=== PATIENT | female | born 1975 | race Caucasian/White ===

== ENCOUNTER 2016-12-14 13:45 | Emergency (ER) | payer OTHER ==
[2016-12-14 14:06] VITALS: RESP 16; TEMP 98.6; O2SAT 98; BMI 21.4
[2016-12-14] MEDS ORDERED: Sodium Chloride 0.9% 1,000 ML IV STA (14:14)
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
[2016-12-14 14:54] LABS: ADD MANUAL DIFF? NO
[2016-12-14 15:06] LABS: ALB/GLOB RATIO 1.1 (1.1-1.8); ALKALINE PHOSPHATASE 72 U/L (38-133); ALT/SGPT 32 U/L (7-56); AST/SGOT 22 U/L (15-39); BILIRUBIN,TOTAL 0.3 mg/dL (0.2-1.3); BLOOD UREA NITROGEN 13 mg/dL (7-21); CALCIUM 9.2 mg/dL (8.4-10.5); CARBON DIOXIDE 28 mmol/L (21-33); CHLORIDE 101 mmol/L (98-107); GFR AFRICAN-AMERICAN > 60; GLUCOSE,RANDOM 81 mg/dL (70-110); LIPASE 71 U/L (23-300); SODIUM 137 mmol/L (132-148); TOTAL PROTEIN 7.6 g/dL (5.8-8.3)
[2016-12-14 15:14] LABS: BASO # 0.02 K/mm3 (0.0-2.0); BASO % 0.4 % (0.0-3.0); EOS # 0.3 (0.0-0.7); EOS % 5.1 % (1.5-5.0); GRAN # 3.03 (1.4-6.5); GRAN % 56.9 % (50.0-68.0); HEMATOCRIT 35.8 % (36.0-48.0); LYMPH # 1.5 (1.2-3.4); LYMPH % 28.6 % (22.0-35.0); MEAN CORPUSCULAR HEMOGLOBIN 31.8 pg (25.0-35.0); MEAN CORPUSCULAR HGB CONC 33.8 g/dl (31.0-37.0); MONO # 0.5 (0.1-0.6); PLATELET COUNT 194 10^3/uL (120.0-450.0); RED CELL DISTRIBUTION WIDTH 12.1 % (11.5-14.5); WHITE BLOOD COUNT 5.3 10^3/ul (4.5-11.0)
[2016-12-14 16:04] VITALS: BP 94/55; PULSE 55
== END 2016-12-14 16:04 | disposition home or self-care (01) ==
LOC: ED 13:45
DX: K29.70 Gastritis, unspecified, without bleeding (principal); Z87.442 Personal history of urinary calculi; Z97.5 Presence of (intrauterine) contraceptive device
CPT/HCPCS: 80053; 83690; 85025; 96374; 96375; 99283; J2405; J7040

== ENCOUNTER 2017-02-21 08:38 | Emergency (ER) | payer OTHER ==
[2017-02-21 08:39] VITALS: BMI 21.4
[2017-02-21 09:04] VITALS: BP 112/78; PULSE 87; RESP 18; TEMP 98.3; O2SAT 100
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
[2017-02-21] MEDS ORDERED: guaiFENesin-Codeine 100-10mg/5ml Syrup (5 ml) UD PO STA (09:12)
== END 2017-02-21 09:37 | disposition home or self-care (01) ==
LOC: ED 08:38
DX: J30.2 Other seasonal allergic rhinitis (principal); J40 Bronchitis, not specified as acute or chronic

== ENCOUNTER 2017-05-30 10:22 | Emergency (ER) | payer OTHER ==
[2017-05-30 10:31] VITALS: BMI 20.5
[2017-05-30 10:45] VITALS: RESP 18; O2SAT 100
--- NOTE | 2017-05-30 11:14 | ED PDOC ---
Arrival/HPI - General Chief Complaint: Breast Problem Time Seen by Provider: 05/30/17 10:45 Historian: Patient - History of Present Illness Narrative History of Present Illness (Text): 05/30/17 11:43 41-year-old female presents today with bilateral breast pain that radiates to the arms bilaterally and the shoulders. Patient states she has pain with range of motion of the arms. pt states the pain is in the joints. pt states she has pain in the shoulders, elbows and wrists bilaterally and pain in the axilla bilaterally. Patient states she has pain radiating to the shoulder and neck/ upper back. pt states she is unable to lift both arms because of the pain. She denies chest pain or shortness of breath. pt states the pain is NOT in her chest , it is in her Breasts. Patient states she took Tylenol for pain at home yesterday without improvement in her symptoms. Patient states prior to having an IUD she had this similar pain around her menstrual cycle. Patient states she has not had this pain in over a year. Patient states the pain is much worse than she has ever had before. No abdominal pain. No nausea or vomiting. No fevers or chills. pt states all of her joints ache. Patient denies numbness weakness tingling in the extremities. patient denies . Time/Duration: Other (last night) Symptom Onset: Gradual Quality: Aching Severity Level: 6 Past Medical History - Provider Review Nursing Documentation Reviewed: Yes - Travel History Have you recently traveled outside [place] w/in the past 3 mons?: No - Past History Past History: No Previous - Infectious Disease Hx of Infectious Diseases: None - Tetanus Immunization Tetanus Immunization: Unknown - Past Medical History Past Medical History: No Previous - Cardiac Hx Cardiac Disorders: No - Pulmonary Hx Respiratory Disorders: No - Neurological Hx Neurological Disorder: No - HEENT Hx HEENT Disorder: Yes (GLASSES) - Renal Hx Renal Disorder: No Hx Kidney Stones: Yes (PASSED) - Endocrine/Metabolic Hx Endocrine Disorders: No - Hematological/Oncological Hx Blood Disorders: No - Integumentary Hx Dermatological Disorder: No - Musculoskeletal/Rheumatological Hx Musculoskeletal Disorders: Yes (KNEE PAIN LEFT/RT ARM) - Gastrointestinal Hx Gastrointestinal Disorders: No - Genitourinary/Gynecological Hx Genitourinary Disorders: No - Psychiatric Hx Psychophysiologic Disorder: No Hx Substance Use: No - Past Surgical History Past Surgical History: No Previous - Surgical History Hx Orthopedic Surgery: Yes (RT. FOOT ) - Anesthesia Hx Anesthesia: Yes Hx Anesthesia Reactions: No Hx Malignant Hyperthermia: No - Suicidal Assessment Feels Threatened In Home Enviroment: No Family/Social History - Physician Review Nursing Documentation Reviewed: Yes Family/Social History: Unknown Family HX Smoking Status: Never Smoked Hx Alcohol Use: No Hx Substance Use: No Hx Substance Use Treatment: No Allergies/Home Meds Allergies/Adverse Reactions: Allergies No Known Allergies Allergy (Verified 05/30/17 11:19) Review of Systems - Review of Systems Constitutional: absent: Fatigue, Fevers Respiratory: absent: SOB, Cough Cardiovascular: absent: Chest Pain, Palpitations Gastrointestinal: absent: Abdominal Pain, Nausea, Vomiting Genitourinary Female: Other (breast pain). absent: Dysuria, Frequency, Hematuria Musculoskeletal: Arthralgias, Back Pain, Neck Pain Skin: absent: Rash, Pruritis Neurological: absent: Headache, Dizziness Psychiatric: absent: Anxiety, Depression Physical Exam Vital Signs Reviewed: Yes Vital Signs Temp Pulse Resp BP Pulse Ox 05/30/17 12:36 98.2 F 64 18 106/57 L 100 05/30/17 10:44 98.5 F 69 18 104/71 100 Temperature: Afebrile Blood Pressure: Normal Pulse: Regular Respiratory Rate: Normal Appearance: Positive for: Well-Appearing, Non-Toxic, Comfortable Pain Distress: None Mental Status: Positive for: Alert and Oriented X 3 - Systems Exam Head: Present: Atraumatic Mouth: Present: Moist Mucous Membranes Neck: Present: Normal Range of Motion, Paraspinal Tenderness, Trachea Midline. No: Meningeal Signs, MIDLINE TENDERNESS Respiratory/Chest: Present: Clear to Auscultation, Good Air Exchange. No: Respiratory Distress, Accessory Muscle Use, Wheezes, Retracting, Rhonchi, Tachypneic, Tender to Palpation Cardiovascular: Present: Regular Rate and Rhythm, Normal S1, S2. No: Murmurs Abdomen: No: Tenderness, Distention, Rebound, Guarding Back: Present: Normal Inspection. No: Midline Tenderness, Paraspinal Tenderness Upper Extremity: Present: Normal Inspection, Normal ROM, NORMAL PULSES, Neurovascularly Intact, Capillary Refill < 2s. No: Tenderness, Swelling, Erythema Lower Extremity: Present: Normal Inspection. No: CALF TENDERNESS, Tenderness Neurological: Present: GCS=15, Speech Normal, Motor Func Grossly Intact, Normal Sensory Function, Gait Normal Skin: Present: Warm, Dry, Normal Color. No: Rashes Psychiatric: Present: Alert, Oriented x 3 Medical Decision Making ED Course and Treatment: 05/30/17 14:08 41yr old female with b/l breast pain since last night. with neck, upper back pain, b/l elbow, shoulder, wrist pain. denies cp or sob. no trauma or injury. cbc; wnl cmp; wnl lyme pending ekg; NSR at 72 b/m no st elevations, normal axis,normal intervals. cxr; wnl toradol given for pain. pt reassessment; pt feeling better after medications; states pain has improved and she can now raise her arms up above her head. advised f/u with PMD and [facility]/ advised f/u with breast specialist; advised patient she will need mammogram. pt states she is due for mammogram, states her last mammogram was last year. stressed importance of immediate return if symptoms worsen,persist or if new symptoms develop. Patient verbalizes understanding of discharge instructions and need for immediate followup. pt seen and evaluated by dr. munoz. all aspects of this case were discussed the attending of record. impression: breast pain, arthralgias motrin every 6 hours as needed for pain follow up with the primary care physician within the next 2 days Follow up with the [facility] within the next 2 days follow up with the breast specialist within the next 2 days; you should have a mammogram MIGUELINA. return if symptoms worsen, persist or if new symptoms develop. - Lab Interpretations Lab Results: 05/30/17 12:35 05/30/17 12:35 Lab Results 05/30/17 12:35: WBC 5.3, RBC 3.93, Hgb 12.7, Hct 37.2, MCV 94.7, MCH 32.3, MCHC 34.1, RDW 12.2, Plt Count 177, MPV 9.8, Gran % 64.2, Lymph % (Auto) 25.5, [place] % (Auto) 7.5 H, Eos % (Auto) 2.6, Baso % (Auto) 0.2, Gran # 3.40, Lymph # 1.4, [place] # 0.4, Eos # 0.1, Baso # 0.01 05/30/17 12:35: Sodium 136, Potassium 3.9, Chloride 105, Carbon Dioxide 25, Anion Gap 10, BUN 11, Creatinine 0.5 L, Est GFR ( Amer) > 60, Est GFR ( Non-Af Amer) > 60, Random Glucose 103, Calcium 9.6, Total Bilirubin 0.5, AST 22 , ALT 40, Alkaline Phosphatase 71, Total Protein 7.4, Albumin 3.9, Globulin 3.5 , Albumin/Globulin Ratio 1.1 - RAD Interpretation Radiology Orders: 05/30/17 11:07 CHEST TWO VIEWS (PA/LAT) [RAD] Stat - Medication Orders Current Medication Orders: Discontinued Medications Ketorolac Tromethamine (Toradol) 60 mg IM STAT STA Stop: 05/30/17 11:08 Last Admin: 05/30/17 11:56 Dose: 60 mg MAR Pain Assessment Document 05/30/17 11:56 JOL (Rec: 05/30/17 11:57 [id number] Pain Reassessment Is this a pain reassessment? No Sleep Is patient sleeping during reassessment? No Presence of Pain Presence of Pain Yes Pain Scale Used Pain Scale Used Numeric Location Left, Right or Bilateral Bilateral Pain Location Body Site Breast Description Intensity of Pain at present 7 IM Administration Charges Document 05/30/17 11:56 JOL (Rec: 05/30/17 11:57 [id number]) Injection Site MAR Injection Site Left Deltoid Charges for Administration # of IM Administrations 1 Disposition/Present on Arrival - Present on Arrival Any Indicators Present on Arrival: No History of DVT/PE: No History of Uncontrolled Diabetes: No Urinary Catheter: No History of Decub. Ulcer: No History Surgical Site Infection Following: None - Disposition Have Diagnosis and Disposition been Completed?: Yes Diagnosis: Breast pain, Arthralgia Disposition: HOME/ ROUTINE Disposition Time: 14:26 Patient Plan: Discharge Patient Problems: Current Active Problems Problem Status Onset Breast pain Acute Arthralgia Acute Condition: GOOD Discharge Instructions (ExitCare): Arthralgia (ED) Additional Instructions: motrin every 6 hours as needed for pain follow up with the primary care physician within the next 2 days Follow up with the [facility] within the next 2 days follow up with the breast specialist within the next 2 days; you should have a mammogram MIGUELINA. return if symptoms worsen, persist or if new symptoms develop. Prescriptions: Ibuprofen [Motrin Tab] 400 mg PO Q6H PRN #20 tab PRN Reason: Pain, Mild (1-3) Referrals: Megan Kwan MD [Primary Care Provider] - Follow up with primary German Dominguez MD [Staff Provider] - Follow up with primary Huyen Cordon MD [Medical Doctor] - Follow up with primary Jovanny Moreno DO [Staff Provider] - Follow up with primary Forms: [employer] (Lux[place]ish), WORK NOTE
[2017-05-30 12:37] VITALS: TEMP 98.2
[2017-05-30 12:51] LABS: BASO # 0.01 K/mm3 (0.0-2.0); BASO % 0.2 % (0.0-3.0); EOS # 0.1 (0.0-0.7); EOS % 2.6 % (1.5-5.0); GRAN # 3.4 (1.4-6.5); GRAN % 64.2 % (50.0-68.0); HEMATOCRIT 37.2 % (36.0-48.0); LYMPH # 1.4 (1.2-3.4); LYMPH % 25.5 % (22.0-35.0); MEAN CELL VOLUME 94.7 fl (80.0-105.0); MEAN CORPUSCULAR HEMOGLOBIN 32.3 pg (25.0-35.0); MEAN CORPUSCULAR HGB CONC 34.1 g/dl (31.0-37.0); MEAN PLATELET VOLUME 9.8 fl (7.0-11.0); MONO # 0.4 (0.1-0.6); MONO % 7.5 % (1.0-6.0); RED CELL DISTRIBUTION WIDTH 12.2 % (11.5-14.5); WHITE BLOOD COUNT 5.3 10^3/ul (4.5-11.0)
[2017-05-30 12:53] LABS: ALB/GLOB RATIO 1.1 (1.1-1.8); ALKALINE PHOSPHATASE 71 U/L (38-126); ALT/SGPT 40 U/L (7-56); AST/SGOT 22 U/L (14-36); BILIRUBIN,TOTAL 0.5 mg/dL (0.2-1.3); BLOOD UREA NITROGEN 11 mg/dL (7-21); CALCIUM 9.6 mg/dL (8.4-10.5); CARBON DIOXIDE 25 mmol/L (21-33); CHLORIDE 105 mmol/L (98-107); GFR AFRICAN-AMERICAN > 60; GLUCOSE,RANDOM 103 mg/dL (70-110); POTASSIUM 3.9 mmol/L (3.6-5.0); SODIUM 136 mmol/L (132-148); TOTAL PROTEIN 7.4 g/dL (5.8-8.3)
--- NOTE | 2017-05-30 13:06 | RAD ---
HISTORY: b/l breast pain COMPARISON: 08/02/2016 TECHNIQUE: Chest PA and lateral FINDINGS: LUNGS: No active pulmonary disease. PLEURA: No significant pleural effusion identified. No pneumothorax apparent. CARDIOVASCULAR: Normal. OSSEOUS STRUCTURES: No significant abnormalities. VISUALIZED UPPER ABDOMEN: Normal. OTHER FINDINGS: None. IMPRESSION: No active disease.
[2017-05-30 14:38] VITALS: BP 100/64; PULSE 65
--- NOTE | 2017-05-30 23:39 | CARD ---
APPROVED REPORT EKG Measurement Heart [id number] <Conclusion> Normal sinus rhythm Normal ECG
[2017-05-31 07:55] LABS: LYME DISEASE SCREEN <0.90 index
== END 2017-05-30 14:45 | disposition home or self-care (01) ==
LOC: ED 10:22
DX: N64.4 Mastodynia (principal); M25.50 Pain in unspecified joint
CPT/HCPCS: 71020; 80053; 85025; 86618; 93005; 96372; 99284; J1885

== ENCOUNTER 2017-12-27 15:53 | Emergency (ER) | payer OTHER ==
[2017-12-27] MEDS ORDERED: cefTRIAXone (Rocephin) 1 gm Inj IM STA (16:18)
[2017-12-27] MEDS ORDERED: TDAP Vaccine 0.5 mL Syr IM ONE (16:18)
--- NOTE | 2017-12-27 16:23 | ED PDOC ---
Arrival/HPI - General Time Seen by Provider: 12/27/17 16:17 Historian: Patient - History of Present Illness Narrative History of Present Illness (Text): 12/27/17 16:19 42yo female with no pmhx who present with finger laceration to left 3rd finger x 2days. Notes that she accidentally cut her finger with a knife while cooking. States she started applying topical abx to the wound yesterday. Came to ED today for the persistent pain, swelling and redness. States the redness spread more today. She states that she is not up to date with her TD booster. Denies fever, chills, purulent discharge from wound, paresthesia, any other complaint. Past Medical History - Provider Review Nursing Documentation Reviewed: Yes - Past History Past History: No Previous - Infectious Disease Hx of Infectious Diseases: None - Tetanus Immunization Tetanus Immunization: Unknown - Past Medical History Past Medical History: No Previous - Cardiac Hx Cardiac Disorders: No - Pulmonary Hx Respiratory Disorders: No - Neurological Hx Neurological Disorder: No - HEENT Hx HEENT Disorder: Yes (GLASSES) - Renal Hx Renal Disorder: No Hx Kidney Stones: Yes (PASSED) - Endocrine/Metabolic Hx Endocrine Disorders: No - Hematological/Oncological Hx Blood Disorders: No - Integumentary Hx Dermatological Disorder: No - Musculoskeletal/Rheumatological Hx Musculoskeletal Disorders: Yes (KNEE PAIN LEFT/RT ARM) - Gastrointestinal Hx Gastrointestinal Disorders: No - Genitourinary/Gynecological Hx Genitourinary Disorders: No - Psychiatric Hx Psychophysiologic Disorder: No Hx Substance Use: No - Past Surgical History Past Surgical History: No Previous - Surgical History Hx Orthopedic Surgery: Yes (RT. FOOT ) - Anesthesia Hx Anesthesia: Yes Hx Anesthesia Reactions: No Hx Malignant Hyperthermia: No - Suicidal Assessment Feels Threatened In Home Enviroment: No Family/Social History - Physician Review Nursing Documentation Reviewed: Yes Family/Social History: Unknown Family HX Smoking Status: Never Smoked Hx Alcohol Use: No Hx Substance Use: No Hx Substance Use Treatment: No Allergies/Home Meds Allergies/Adverse Reactions: Allergies No Known Allergies Allergy (Verified 12/27/17 16:24) Review of Systems - Physician Review All systems were reviewed & negative as marked: Yes - Review of Systems Constitutional: Normal Eyes: Normal ENT: Normal Respiratory: Normal Cardiovascular: Normal Gastrointestinal: Normal Genitourinary Female: Normal Musculoskeletal: Normal Skin: Laceration (Left 3rd finger) Neurological: Normal Endocrine: Normal Hemo/Lymphatic: Normal Psychiatric: Normal Physical Exam Vital Signs Reviewed: Yes Vital Signs Temp Pulse Resp BP Pulse Ox 12/27/17 17:20 98.4 F 80 17 124/77 100 12/27/17 16:24 98.4 F 80 17 124/77 100 Temperature: Afebrile Blood Pressure: Normal Pulse: Regular Respiratory Rate: Normal Appearance: Positive for: Well-Appearing, Non-Toxic, Comfortable Pain Distress: None Mental Status: Positive for: Alert and Oriented X 3 - Systems Exam Head: Present: Atraumatic, Normocephalic Pupils: Present: PERRL Extroacular Muscles: Present: EOMI Conjunctiva: Present: Normal Mouth: Present: Moist Mucous Membranes Neck: Present: Normal Range of Motion Respiratory/Chest: Present: Clear to Auscultation, Good Air Exchange. No: Respiratory Distress, Accessory Muscle Use Cardiovascular: Present: Regular Rate and Rhythm, Normal S1, S2. No: Murmurs Abdomen: No: Tenderness, Distention, Peritoneal Signs Back: Present: Normal Inspection Upper Extremity: Present: Normal Inspection. No: Cyanosis, Edema Lower Extremity: Present: Normal Inspection. No: Edema Neurological: Present: GCS=15, CN II-XII Intact, Speech Normal Skin: Present: Warm, Dry, Normal Color, Laceration (1.0cm Curvilinear laceration noted to left 3rd volar mid finger. No crepitus. No sign of tendon involement. FROM. +Diffuse finger swelling and overlaying erythema of volar 3rd finger.). No: Rashes Psychiatric: Present: Alert, Oriented x 3, Normal Insight, Normal Concentration Medical Decision Making ED Course and Treatment: 12/28/17 00:42 PT presented for stated history. She was hemodynamically stable and in no distress. She have no pmhx. the laceration from two days could not be close and healing will be by secondary healing. wound was irrigated with NS, bacitracine applied and dressed. Finger appears cellulitic and pt was given a dose of Rocephin in ED and DC home with keflex. she was strongly advised to observe wound for [id number] redness and return to ED immediately of IV abx. She was referred to her PMD. - Medication Orders Current Medication Orders: Discontinued Medications Ceftriaxone Sodium (Rocephin) 1 gm IM STAT STA PRN Reason: Protocol Stop: 12/27/17 16:19 Last Admin: 12/27/17 17:10 Dose: 1 gm IM Administration Charges Document 12/27/17 17:10 OCS (Rec: 12/27/17 17:11 OCS [id number]) Injection Site MAR Injection Site Right Gluteus Gerardo Charges for Administration # of IM Administrations 1 Ibuprofen (Motrin Tab) 800 mg PO STAT STA Stop: 12/27/17 16:19 Last Admin: 12/27/17 17:10 Dose: 800 mg Tetanus/Reduced Diphtheria/Acell Pertussis (Boostrix Vaccine Inj) 0.5 ml IM .ONCE ONE Stop: 12/27/17 16:19 Last Admin: 12/27/17 17:11 Dose: 0.5 ml Immunization Registry Document 12/27/17 17:11 OCS (Rec: 12/27/17 17:12 OCS [id number]) Immunization Registry Consent Date 05/30/17 Disposition/Present on Arrival - Present on Arrival Any Indicators Present on Arrival: No History of DVT/PE: No History of Uncontrolled Diabetes: No Urinary Catheter: No History Surgical Site Infection Following: None - Disposition Have Diagnosis and Disposition been Completed?: Yes Diagnosis: Finger laceration, Cellulitis Disposition: HOME/ ROUTINE Disposition Time: 16:25 Patient Plan: Discharge Condition: STABLE Discharge Instructions (ExitCare): Cellulitis (Skin Infection), Adult (DC), Cellulitis (ED) Additional Instructions: Keep wound clean and dry Follow up with your Doctor Return to ED for worsening redness, purulent discharge, fever, any other complaint. Prescriptions: Cephalexin [Keflex] 500 mg PO QID #28 capsule Ibuprofen [Motrin Tab] 600 mg PO Q6 #15 tab Referrals: Queta Lowry MD [Staff Provider] - Follow up with primary Forms: [employer] (Vincentian)
[2017-12-27 16:30] VITALS: BP 124/77; PULSE 80; RESP 17; TEMP 98.4; O2SAT 100; BMI 21.6
== END 2017-12-27 17:20 | disposition home or self-care (01) ==
LOC: ED 15:53
DX: S61.213A Laceration without foreign body of left middle finger without damage to nail, initial encounter (principal); W26.0XXA Contact with knife, initial encounter; Y93.G3 Activity, cooking and baking; Y92.89 Other specified places as the place of occurrence of the external cause; L03.012 Cellulitis of left finger
CPT/HCPCS: 90471; 90715; 96372; 99283; J0696

== ENCOUNTER 2017-12-29 15:40 | Emergency (ER) | payer OTHER ==
[2017-12-29 15:40] VITALS: BMI 21.6
[2017-12-29 16:31] VITALS: O2SAT 98
--- NOTE | 2017-12-29 17:07 | ED PDOC ---
Arrival/HPI - General Chief Complaint: Fever Time Seen by Provider: 12/29/17 16:22 EM Caveat: Acuity of Condition - History of Present Illness Narrative History of Present Illness (Text): 12/29/17 17:03 Pt is a 42 yr old female who presents for subjective fever, joint aches and fatigue s/p finger laceration 4 days ago and tetanus and Rocephin IV. Pt has been on Keflex 500 mg BID since d/c but began to feel warm with bodyaches since starting it. Denies chest pain, sob, n/v/d, chills, numbness or increase in pain at the laceration site. PMD: Dr Kwan Time/Duration: Prior to Arrival, 24 hours Symptom Onset: Gradual Symptom Course: Worsening Quality: Aching Severity Level: 3, 4, 5 Activities at Onset: Rest, Light Context: Home Past Medical History - Provider Review Nursing Documentation Reviewed: Yes - Travel History Have you recently traveled outside [place] w/in the past 3 mons?: No - Past History Past History: No Previous - Infectious Disease Hx of Infectious Diseases: None - Tetanus Immunization Tetanus Immunization: Unknown - Past Medical History Past Medical History: No Previous - Cardiac Hx Cardiac Disorders: No - Pulmonary Hx Respiratory Disorders: No - Neurological Hx Neurological Disorder: No - HEENT Hx HEENT Disorder: Yes (GLASSES) - Renal Hx Renal Disorder: No Hx Kidney Stones: Yes (PASSED) - Endocrine/Metabolic Hx Endocrine Disorders: No - Hematological/Oncological Hx Blood Disorders: No - Integumentary Hx Dermatological Disorder: No - Musculoskeletal/Rheumatological Hx Musculoskeletal Disorders: Yes (KNEE PAIN LEFT/RT ARM) - Gastrointestinal Hx Gastrointestinal Disorders: No - Genitourinary/Gynecological Hx Genitourinary Disorders: No - Psychiatric Hx Psychophysiologic Disorder: No Hx Substance Use: No - Past Surgical History Past Surgical History: No Previous - Surgical History Hx Orthopedic Surgery: Yes (RT. FOOT ) - Anesthesia Hx Anesthesia: Yes Hx Anesthesia Reactions: No Hx Malignant Hyperthermia: No - Suicidal Assessment Feels Threatened In Home Enviroment: No Family/Social History - Physician Review Nursing Documentation Reviewed: Yes Family/Social History: Unknown Family HX Smoking Status: Never Smoked Hx Alcohol Use: No Hx Substance Use: No Hx Substance Use Treatment: No Allergies/Home Meds Allergies/Adverse Reactions: Allergies No Known Allergies Allergy (Verified 12/29/17 16:28) Review of Systems - Review of Systems Constitutional: Normal, Fevers Eyes: Normal ENT: Normal. absent: Hearing Changes Respiratory: Normal. absent: SOB Cardiovascular: Normal. absent: Chest Pain, Palpitations Gastrointestinal: Normal, Nausea. absent: Abdominal Pain, Vomiting Genitourinary Female: Normal. absent: Dysuria Musculoskeletal: Normal, Arthralgias (throughout), Back Pain, Neck Pain. absent : Joint Swelling Skin: Normal, Laceration (left index finger). absent: Rash, Pruritis, Abscess, Cellulitis Neurological: Normal, Headache. absent: Dizziness Endocrine: Normal. absent: Diaphoresis Hemo/Lymphatic: Normal Psychiatric: Normal Physical Exam Vital Signs Reviewed: Yes Vital Signs Temp Pulse Resp BP Pulse Ox 12/29/17 18:22 98.6 F 88 18 102/60 98 12/29/17 16:29 98.9 F 92 H 20 102/58 L 98 12/29/17 16:26 98.7 F 100 H 18 102/58 L 97 Temperature: Afebrile Blood Pressure: Normal Pulse: Tachycardic Appearance: Positive for: Well-Appearing, Non-Toxic, Comfortable Pain Distress: Mild Mental Status: Positive for: Alert and Oriented X 3 - Systems Exam Head: Present: Atraumatic, Normocephalic Pupils: Present: PERRL Extroacular Muscles: Present: EOMI Conjunctiva: Present: Normal Mouth: Present: Moist Mucous Membranes Neck: Present: Normal Range of Motion Respiratory/Chest: Present: Clear to Auscultation, Good Air Exchange. No: Respiratory Distress, Accessory Muscle Use Cardiovascular: Present: Regular Rate and Rhythm, Normal S1, S2. No: Murmurs Abdomen: No: Tenderness, Distention, Peritoneal Signs Back: Present: Normal Inspection. No: CVA Tenderness, Midline Tenderness, Paraspinal Tenderness Upper Extremity: Present: Normal Inspection, Normal ROM, NORMAL PULSES, Tenderness (left index finger and left deltoid at injection site ), Neurovascularly Intact, Capillary Refill < 2s. No: Cyanosis, Edema, Swelling, Temperature Abnormalties, Deformity Lower Extremity: Present: Normal Inspection, NORMAL PULSES, Normal ROM. No: Edema Neurological: Present: GCS=15, CN II-XII Intact, Speech Normal, Motor Func Grossly Intact Skin: Present: Warm, Dry, Normal Color. No: Rashes Psychiatric: Present: Alert, Oriented x 3, Normal Insight, Normal Concentration Medical Decision Making ED Course and Treatment: 12/29/17 17:07 Impression Pt is a 42 yr old female who presents for subjective fever, joint aches and fatigue s/p finger laceration 4 days ago and tetanus and Rocephin IV. Working Dx: sepsis vs viral infection Plan Labs, UA Blood Cx CRP and ESR assess and dispo Progress note Labs within normal levels; UA negative Advised pt to continue taking Abx started and finish it f/u with PMD in 2 days return to ER if high fever and increase in pain - Lab Interpretations Lab Results: 12/29/17 17:30 12/29/17 17:30 Lab Results 12/29/17 17:52: pO2 140 H, VBG pH 7.42, VBG pCO2 38.0 L, VBG HCO3 24.6, VBG Total CO2 25.8, VBG O2 Sat (Calc) 99.7 H, VBG Base Excess 0.3, VBG Potassium 3.5 L, Glucose 103, Lactate 1.0, FiO2 21.0, Sodium 137.0, Chloride 108.0 H, Venous Blood Potassium 3.5 L 12/29/17 17:30: Sodium 138, Potassium 3.3 L, Chloride 105, Carbon Dioxide 23, Anion Gap 13, BUN 13, Creatinine 0.6 L, Est GFR ( Amer) > 60, Est GFR ( Non-Af Amer) > 60, Random Glucose 121 H, Calcium 8.6, Total Bilirubin 0.2, AST 21, ALT 33, Alkaline Phosphatase 64, Total Protein 6.7, Albumin 3.5, Globulin 3.3, Albumin/Globulin Ratio 1.1 12/29/17 17:30: WBC 3.7 L D, RBC 3.49 L, Hgb 10.9 L, Hct 31.9 L, MCV 91.4 D, MCH 31.2, MCHC 34.2, RDW 12.0, Plt Count 151, MPV 9.8, Gran % 76.5 H, Lymph % ( Auto) 15.0 L, [place] % (Auto) 7.4 H, Eos % (Auto) 0.8 L, Baso % (Auto) 0.3, Gran # 2.80, Lymph # (Auto) 0.6 L, [place] # (Auto) 0.3, Eos # (Auto) 0.0, Baso # (Auto ) 0.01, ESR 65 H 12/29/17 04:53: Urine Color Yellow, Urine Appearance Clear, Urine pH 6.0, Ur Specific [place] 1.025, Urine Protein Trace H, Urine Glucose (UA) Negative, Urine Ketones Trace H, Urine Blood Negative, Urine Nitrate Negative, Urine Bilirubin Small H, Urine Urobilinogen 2.0 H, Ur Leukocyte Esterase Negative, Urine RBC 0 - 2, Urine WBC 1 - 3, Ur Epithelial Cells 6 - 8, Urine Bacteria Few Interpretation: All labs normal - Medication Orders Current Medication Orders: Discontinued Medications Potassium Chloride (K-Dur 20 Meq Er Tab) 40 meq PO STAT STA Stop: 12/29/17 18:00 Last Admin: 12/29/17 18:20 Dose: 40 meq Disposition/Present on Arrival - Present on Arrival Any Indicators Present on Arrival: Yes History of DVT/PE: No History of Uncontrolled Diabetes: No Urinary Catheter: No History of Decub. Ulcer: No History Surgical Site Infection Following: None - Disposition Have Diagnosis and Disposition been Completed?: No Diagnosis: Arthralgia, Pain from laceration Disposition: HOME/ ROUTINE Disposition Time: 18:35 Patient Plan: Discharge Condition: STABLE Discharge Instructions (ExitCare): Joint Pain Additional Instructions: YURIY INGRAM, thank you for letting us take care of you today. Your provider was Moshe Nichols DO and HORACIO Johnson and you were treated for FEVER/BODY PAIN. The emergency medical care you received today was directed at your acute symptoms. If you were prescribed any medication, please fill it and take as directed. It may take several days for your symptoms to resolve. Return to the Emergency Department if your symptoms worsen, do not improve, or if you have any other problems. PLEASE SEE YOUR PRIMARY CARE DOCTOR IN THE NEXT 2 DAYS FOR FURTHER EVALUATION* * CONTINUE TAKING THE ANTIBIOTIC YOU ARE ON; TAKE MOTRIN 600MG EVERY 6 HRS WITH FOOD, NEEDED. Please contact your doctor or call one of the physicians/clinics you have been referred to that are listed on the Patient Visit Information form that is included in your discharge packet. Bring any paperwork you were given at discharge with you along with any medications you are taking to your follow up visit. Our treatment cannot replace ongoing medical care by a primary care provider outside of the emergency department. Thank you for allowing the [facility] team to be part of your care today. If you had an X-Ray or CT scan: A Radiologist will review the ED reading if any change in treatment is needed we will contact you. If you had a blood, urine, or wound culture: It will take several days for the results, if any change in treatment is needed we will contact you. If you had an STI test: It will take 48 hours for the results. Please call after 1 week if you have not heard back. Forms: [employer] (Turkish)
[2017-12-29 17:37] LABS: BASO # 0.01 K/mm3 (0.0-2.0); BASO % 0.3 % (0.0-3.0); EOS % 0.8 % (1.5-5.0); GRAN # 2.8 (1.4-6.5); GRAN % 76.5 % (50.0-68.0); HEMOGLOBIN 10.9 g/dL (12.0-16.0); LYMPH # 0.6 (1.2-3.4); MEAN CELL VOLUME 91.4 fl (80.0-105.0); MEAN CORPUSCULAR HEMOGLOBIN 31.2 pg (25.0-35.0); MEAN CORPUSCULAR HGB CONC 34.2 g/dl (31.0-37.0); MEAN PLATELET VOLUME 9.8 fl (7.0-11.0); MONO # 0.3 (0.1-0.6); MONO % 7.4 % (1.0-6.0); RBC 3.49 10^6/uL (3.5-6.1); WHITE BLOOD COUNT 3.7 10^3/ul (4.5-11.0)
[2017-12-29 17:40] LABS: URINE BILIRUBIN SMALL (NEGATIVE); URINE BLOOD NEGATIVE (NEGATIVE); URINE GLUCOSE (UA) NEGATIVE (NEGATIVE); URINE LEUKOCYTE ESTERASE NEGATIVE Leu/uL (NEGATIVE); URINE PROTEIN TRACE mg/dL (<30 mg/dL)
[2017-12-29 17:41] LABS: URINE APPEARANCE CLEAR (CLEAR); URINE COLOR YELLOW (YELLOW)
[2017-12-29 17:51] LABS: ALB/GLOB RATIO 1.1 (1.1-1.8); ALBUMIN 3.5 g/dL (3.0-4.8); ALT/SGPT 33 U/L (7-56); AST/SGOT 21 U/L (14-36); BLOOD UREA NITROGEN 13 mg/dL (7-21); CALCIUM 8.6 mg/dL (8.4-10.5); GFR AFRICAN-AMERICAN > 60; GFR NON-AFRICAN AMERICAN > 60
[2017-12-29 17:58] LABS: URINE RBC 0 - 2 /hpf (0-2)
[2017-12-29 17:59] LABS: URINE BACTERIA FEW (NEG)
[2017-12-29] MEDS ORDERED: Potassium Chloride 20 mEq ER Tab PO STA (17:59)
[2017-12-29 18:24] VITALS: BP 102/60; PULSE 88; RESP 18; TEMP 98.6
[2017-12-29 18:52] LABS: VENOUS BLOOD GAS BASE EXCESS 0.3 mmol/L (0.0-2.0); VENOUS BLOOD GAS PO2 140 mm/Hg (30-55); VENOUS BLOOD PH 7.42 (7.32-7.43)
== END 2017-12-29 19:13 | disposition home or self-care (01) ==
LOC: ED 15:40
DX: M25.50 Pain in unspecified joint (principal); M79.645 Pain in left finger(s)

== ENCOUNTER 2018-08-13 09:18 | Outpatient (CLI) | payer MEDICAID | END 2018-08-13 09:19 | disposition home or self-care (01) | LOC: RAD 09:18 | DX: N64.4 Mastodynia (principal); N60.19 Diffuse cystic mastopathy of unspecified breast ==